=== PATIENT | female | born 1935 | race African-American/Black ===

== ENCOUNTER 2017-10-16 18:11 | Inpatient (IN) ==
[2017-10-16] MEDS ORDERED: ENOXAPARIN 60 MG/0.6 ML SYRINGE SUBCUT STA (19:42)
[2017-10-16] MEDS ORDERED: ONDANSETRON 4 MG/2 ML VIAL IV STA (19:43)
[2017-10-16] MEDS ORDERED: MORPHINE 4 MG/1 ML VIAL IV STA (19:43)
[2017-10-16 20:57] LABS: Basophils % 0.2 % (0.0-0.8); Eosinophils # 0.2 10*3/uL (0.0-0.87); Eosinophils % 1.9 % (0.00-10.9); Hematocrit 33.9 VOL% (35.7-47.0); Immature Granulocytes % 0.5 %; Immature Granulocytes Absolute 0.05 #; Lymphocytes # 1.9 10*3/uL (1.4-4.0); Lymphocytes % 17.8 % (21.3-54.2); Mean Corpuscular HGB Conc 32.4 GM/DL (32-36); Mean Corpuscular Hemoglobin 30 PG (27-34); Mean Corpuscular Volume 93.4 FL (87-102); Mean Platelet Volume 10.9 FL (9.6-12.0); Monocytes % 9.1 % (1.7-12.7); Neutrophils # 7.4 10*3/uL (1.4-7.4); Neutrophils % 70.5 % (38.7-73.9); Platelet Count 179 T/CUMM (130-400); Red Blood Count 3.63 MC/CUMM (3.8-5.5); Red Cell Distribution Width 16.3 % (9.3-17.3); White Blood Count 10.5 T/CUMM (4-12)
[2017-10-16] MEDS ORDERED: ACETAMINOPHEN 325 MG TABLET PO PRN (21:02)
[2017-10-16] MEDS ORDERED: ONDANSETRON 4 MG/2 ML VIAL IV PRN (21:02)
[2017-10-16 21:07] LABS: PT Patient Result 10.8 SECS; Partial Thromboplastin Time 27.5 SECS (0-40)
[2017-10-16 21:15] LABS: Calcium 8.2 MG/DL (8.5-10.1); Osmolality,Calculated 290.7 MOS/KG (273-304)
[2017-10-16] MEDS ORDERED: MORPHINE 4 MG/1 ML VIAL ONE (21:17)
[2017-10-16] MEDS ORDERED: ALBUTEROL 2.5 MG/3 ML NEB RESP TX PRN (22:18)
[2017-10-17] MEDS: MORPHINE 4 MG/1 ML VIAL IV PRN ×2 (05:13→18:40)
[2017-10-17 07:20] LABS: Basophils % 0.2 % (0.0-0.8); Eosinophils # 0.2 10*3/uL (0.0-0.87); Eosinophils % 1.8 % (0.00-10.9); Hematocrit 34.5 VOL% (35.7-47.0); Hemoglobin 10.6 GM/DL (12.0-16.0); Immature Granulocytes % 0.5 %; Immature Granulocytes Absolute 0.05 #; Lymphocytes # 2.3 10*3/uL (1.4-4.0); Lymphocytes % 24.9 % (21.3-54.2); Mean Corpuscular HGB Conc 30.7 GM/DL (32-36); Mean Corpuscular Hemoglobin 30 PG (27-34); Mean Corpuscular Volume 96.9 FL (87-102); Mean Platelet Volume 11.5 FL (9.6-12.0); Monocytes # 0.9 10*3/uL (0.11-0.8); Monocytes % 9.9 % (1.7-12.7); Neutrophils # 5.8 10*3/uL (1.4-7.4); Neutrophils % 62.7 % (38.7-73.9); Platelet Count 177 T/CUMM (130-400); Red Blood Count 3.56 MC/CUMM (3.8-5.5); Red Cell Distribution Width 16.3 % (9.3-17.3); White Blood Count 9.3 T/CUMM (4-12)
[2017-10-17 07:27] LABS: INR 1.1; PT Patient Result 11.4 SECS
[2017-10-17 07:51] LABS: Calcium 8.3 MG/DL (8.5-10.1); Osmolality,Calculated 288.7 MOS/KG (273-304); Potassium 4.4 MMOL/L (3.5-5.1)
[2017-10-17] MEDS: METOPROLOL TARTRATE 25 MG TABLET PO SCH ×2 (09:01→20:34)
[2017-10-17] MEDS: SERTRALINE 50 MG TABLET PO SCH (09:01)
[2017-10-17] MEDS: ENOXAPARIN 60 MG/0.6 ML SYRINGE SUBCUT SCH ×2 (09:01→20:34)
[2017-10-17] MEDS: DONEPEZIL 10 MG TABLET PO SCH (09:01)
[2017-10-17] MEDS: POTASSIUM CHLORIDE 10 MEQ TABLET PO SCH (09:01)
[2017-10-17] MEDS: MEGESTROL ES 125 MG/ML 30 ML/BOTTLE PO SCH (09:02)
[2017-10-17] MEDS: amLODIPine 5 MG TABLET PO SCH (09:03)
[2017-10-17] MEDS ORDERED: WARFARIN 4 MG TABLET PO SCH (18:00)
[2017-10-17] MEDS: WARFARIN 10 MG TABLET PO SCH (18:41)
[2017-10-17] MEDS: ATORVASTATIN 10 MG TABLET PO SCH (20:34)
[2017-10-17] MEDS: ZALEPLON 5 MG CAPSULE PO SCH (20:34)
[2017-10-17] MEDS: GABAPENTIN 100 MG CAPSULE PO SCH (20:34)
[2017-10-18 04:56] LABS: Basophils % 0.1 % (0.0-0.8); Eosinophils # 0.2 10*3/uL (0.0-0.87); Eosinophils % 1.8 % (0.00-10.9); Hematocrit 31.9 VOL% (35.7-47.0); Hemoglobin 10.3 GM/DL (12.0-16.0); Immature Granulocytes % 0.5 %; Immature Granulocytes Absolute 0.05 #; Lymphocytes # 2.2 10*3/uL (1.4-4.0); Lymphocytes % 20.7 % (21.3-54.2); Mean Corpuscular HGB Conc 32.3 GM/DL (32-36); Mean Corpuscular Hemoglobin 30 PG (27-34); Mean Corpuscular Volume 93.3 FL (87-102); Mean Platelet Volume 11.8 FL (9.6-12.0); Neutrophils # 7.3 10*3/uL (1.4-7.4); Neutrophils % 67.9 % (38.7-73.9); Platelet Count 182 T/CUMM (130-400); Red Blood Count 3.42 MC/CUMM (3.8-5.5); White Blood Count 10.7 T/CUMM (4-12)
[2017-10-18 05:19] LABS: Calcium 8.7 MG/DL (8.5-10.1); Osmolality,Calculated 290.7 MOS/KG (273-304); Potassium 4.9 MMOL/L (3.5-5.1)
[2017-10-18] MEDS: DONEPEZIL 10 MG TABLET PO SCH (10:36)
[2017-10-18] MEDS: METOPROLOL TARTRATE 25 MG TABLET PO SCH ×2 (10:36→20:42)
[2017-10-18] MEDS: POTASSIUM CHLORIDE 10 MEQ TABLET PO SCH (10:36)
[2017-10-18] MEDS: amLODIPine 5 MG TABLET PO SCH (10:36)
[2017-10-18] MEDS: SERTRALINE 50 MG TABLET PO SCH (10:36)
[2017-10-18] MEDS: MEGESTROL ES 125 MG/ML 30 ML/BOTTLE PO SCH (10:43)
[2017-10-18] MEDS ORDERED: VANCOMYCIN INJ 1,000 MG in SODIUM CHLORIDE 0.9% 250 ML IV SCH (11:00)
[2017-10-18] MEDS: ENOXAPARIN 60 MG/0.6 ML SYRINGE SUBCUT SCH (14:22)
[2017-10-18] MEDS: WARFARIN 10 MG TABLET PO SCH (18:43)
[2017-10-18] MEDS: ATORVASTATIN 10 MG TABLET PO SCH (20:42)
[2017-10-18] MEDS: ZALEPLON 5 MG CAPSULE PO SCH (20:42)
[2017-10-18] MEDS: GABAPENTIN 100 MG CAPSULE PO SCH (20:43)
[2017-10-19] MEDS: ENOXAPARIN 60 MG/0.6 ML SYRINGE SUBCUT SCH ×2 (02:51→15:27)
[2017-10-19 06:02] LABS: Basophils % 0.1 % (0.0-0.8); Eosinophils # 0.2 10*3/uL (0.0-0.87); Hematocrit 28.5 VOL% (35.7-47.0); Hemoglobin 9.3 GM/DL (12.0-16.0); Immature Granulocytes % 0.4 %; Immature Granulocytes Absolute 0.04 #; Lymphocytes # 1.9 10*3/uL (1.4-4.0); Lymphocytes % 17.9 % (21.3-54.2); Mean Corpuscular HGB Conc 32.6 GM/DL (32-36); Mean Corpuscular Hemoglobin 30 PG (27-34); Mean Corpuscular Volume 91.9 FL (87-102); Mean Platelet Volume 11.5 FL (9.6-12.0); Monocytes # 1.1 10*3/uL (0.11-0.8); Monocytes % 10.2 % (1.7-12.7); NRBC # 0.02 10*3/uL; Neutrophils # 7.5 10*3/uL (1.4-7.4); Neutrophils % 69.4 % (38.7-73.9); Platelet Count 232 T/CUMM (130-400); Red Cell Distribution Width 15.9 % (9.3-17.3); White Blood Count 10.7 T/CUMM (4-12)
[2017-10-19 06:22] LABS: Calcium 8.5 MG/DL (8.5-10.1); Osmolality,Calculated 299.3 MOS/KG (273-304); Potassium 4.7 MMOL/L (3.5-5.1)
[2017-10-19] MEDS: MORPHINE 4 MG/1 ML VIAL IV PRN (06:38)
[2017-10-19] MEDS ORDERED: WARFARIN 5 MG TABLET PO SCH (07:53)
[2017-10-19] MEDS: SERTRALINE 50 MG TABLET PO SCH (09:43)
[2017-10-19] MEDS: METOPROLOL TARTRATE 25 MG TABLET PO SCH ×2 (09:43→21:38)
[2017-10-19] MEDS: DONEPEZIL 10 MG TABLET PO SCH (09:43)
[2017-10-19] MEDS: amLODIPine 5 MG TABLET PO SCH (09:45)
[2017-10-19] MEDS: POTASSIUM CHLORIDE 10 MEQ TABLET PO SCH (09:45)
[2017-10-19] MEDS: MEGESTROL ES 125 MG/ML 30 ML/BOTTLE PO SCH (09:52)
[2017-10-19] MEDS: VANCOMYCIN INJ 750 MG in SODIUM CHLORIDE 0.9% 250 ML IV SCH (11:40)
[2017-10-19] MEDS: ATORVASTATIN 10 MG TABLET PO SCH (21:38)
[2017-10-19] MEDS: ZALEPLON 5 MG CAPSULE PO SCH (21:38)
[2017-10-19] MEDS: GABAPENTIN 100 MG CAPSULE PO SCH (21:39)
[2017-10-20] MEDS: ENOXAPARIN 60 MG/0.6 ML SYRINGE SUBCUT SCH ×2 (01:52→17:14)
[2017-10-20] MEDS: MORPHINE 4 MG/1 ML VIAL IV PRN (02:05)
[2017-10-20 06:32] LABS: INR 3.1
[2017-10-20 06:54] LABS: PT Patient Result 31.4 SECS
[2017-10-20] MEDS: SERTRALINE 50 MG TABLET PO SCH (10:18)
[2017-10-20] MEDS: amLODIPine 5 MG TABLET PO SCH (10:18)
[2017-10-20] MEDS: DONEPEZIL 10 MG TABLET PO SCH (10:18)
[2017-10-20] MEDS: cloNIDine 0.1 MG TABLET PO SCH ×2 (10:18→20:47)
[2017-10-20] MEDS: POTASSIUM CHLORIDE 10 MEQ TABLET PO SCH (10:18)
[2017-10-20] MEDS: METOPROLOL TARTRATE 25 MG TABLET PO SCH ×2 (10:18→20:47)
[2017-10-20] MEDS: VANCOMYCIN INJ 750 MG in SODIUM CHLORIDE 0.9% 250 ML IV SCH (10:19)
[2017-10-20] MEDS: MEGESTROL ES 125 MG/ML 30 ML/BOTTLE PO SCH (10:19)
[2017-10-20] MEDS: ZALEPLON 5 MG CAPSULE PO SCH (20:47)
[2017-10-20] MEDS: ATORVASTATIN 10 MG TABLET PO SCH (20:47)
[2017-10-20] MEDS: GABAPENTIN 100 MG CAPSULE PO SCH (20:47)
[2017-10-21] MEDS: ENOXAPARIN 60 MG/0.6 ML SYRINGE SUBCUT SCH (01:56)
[2017-10-21 04:13] LABS: Basophils % 0.2 % (0.0-0.8); Eosinophils # 0.3 10*3/uL (0.0-0.87); Eosinophils % 2.3 % (0.00-10.9); Hemoglobin 9.3 GM/DL (12.0-16.0); Immature Granulocytes Absolute 0.11 #; Lymphocytes # 2.6 10*3/uL (1.4-4.0); Lymphocytes % 24.2 % (21.3-54.2); Mean Corpuscular HGB Conc 32.1 GM/DL (32-36); Mean Corpuscular Hemoglobin 30 PG (27-34); Mean Corpuscular Volume 92.9 FL (87-102); Mean Platelet Volume 11.7 FL (9.6-12.0); Monocytes % 9.3 % (1.7-12.7); Neutrophils # 6.7 10*3/uL (1.4-7.4); Platelet Count 249 T/CUMM (130-400); Red Blood Count 3.12 MC/CUMM (3.8-5.5); Red Cell Distribution Width 16.2 % (9.3-17.3); White Blood Count 10.6 T/CUMM (4-12)
[2017-10-21 04:24] LABS: INR 2.1
[2017-10-21 04:29] LABS: Calcium 8.6 MG/DL (8.5-10.1); Osmolality,Calculated 292.8 MOS/KG (273-304); Potassium 5.2 MMOL/L (3.5-5.1)
[2017-10-21 04:33] LABS: PT Patient Result 21.5 SECS
[2017-10-21] MEDS: MEGESTROL ES 125 MG/ML 30 ML/BOTTLE PO SCH (08:20)
[2017-10-21] MEDS: amLODIPine 5 MG TABLET PO SCH (08:20)
[2017-10-21] MEDS: DONEPEZIL 10 MG TABLET PO SCH (08:20)
[2017-10-21] MEDS: SERTRALINE 50 MG TABLET PO SCH (08:20)
[2017-10-21] MEDS: cloNIDine 0.1 MG TABLET PO SCH ×2 (08:20→20:51)
[2017-10-21] MEDS: METOPROLOL TARTRATE 25 MG TABLET PO SCH ×2 (08:20→20:51)
[2017-10-21] MEDS: POTASSIUM CHLORIDE 10 MEQ TABLET PO SCH (08:20)
[2017-10-21] MEDS: VANCOMYCIN INJ 750 MG in SODIUM CHLORIDE 0.9% 250 ML IV SCH (12:05)
[2017-10-21] MEDS: MORPHINE 4 MG/1 ML VIAL IV PRN ×2 (14:50→19:10)
[2017-10-21] MEDS ORDERED: WARFARIN 5 MG TABLET PO SCH (18:00)
[2017-10-21] MEDS: ZALEPLON 5 MG CAPSULE PO SCH (20:51)
[2017-10-21] MEDS: ATORVASTATIN 10 MG TABLET PO SCH (20:51)
[2017-10-21] MEDS: GABAPENTIN 100 MG CAPSULE PO SCH (20:51)
[2017-10-22 05:50] LABS: Basophils % 0.2 % (0.0-0.8); Eosinophils # 0.2 10*3/uL (0.0-0.87); Hematocrit 28.5 VOL% (35.7-47.0); Hemoglobin 9.1 GM/DL (12.0-16.0); Immature Granulocytes % 1.2 %; Immature Granulocytes Absolute 0.11 #; Lymphocytes # 2.1 10*3/uL (1.4-4.0); Lymphocytes % 21.8 % (21.3-54.2); Mean Corpuscular HGB Conc 31.9 GM/DL (32-36); Mean Corpuscular Hemoglobin 30 PG (27-34); Mean Corpuscular Volume 92.8 FL (87-102); Mean Platelet Volume 11.9 FL (9.6-12.0); Monocytes # 0.9 10*3/uL (0.11-0.8); Monocytes % 9.4 % (1.7-12.7); Neutrophils # 6.2 10*3/uL (1.4-7.4); Neutrophils % 65.4 % (38.7-73.9); Platelet Count 278 T/CUMM (130-400); Red Blood Count 3.07 MC/CUMM (3.8-5.5); Red Cell Distribution Width 16.2 % (9.3-17.3); White Blood Count 9.4 T/CUMM (4-12)
[2017-10-22 05:58] LABS: INR 1.6; PT Patient Result 16.4 SECS
[2017-10-22 06:20] LABS: Calcium 8.7 MG/DL (8.5-10.1); Osmolality,Calculated 294.8 MOS/KG (273-304); Potassium 5.1 MMOL/L (3.5-5.1)
[2017-10-22] MEDS: MORPHINE 4 MG/1 ML VIAL IV PRN ×2 (09:21→20:43)
[2017-10-22] MEDS: amLODIPine 5 MG TABLET PO SCH (09:22)
[2017-10-22] MEDS: METOPROLOL TARTRATE 25 MG TABLET PO SCH ×2 (09:22→20:43)
[2017-10-22] MEDS: cloNIDine 0.1 MG TABLET PO SCH ×4 (09:22→20:43)
[2017-10-22] MEDS: DONEPEZIL 10 MG TABLET PO SCH (09:22)
[2017-10-22] MEDS: POTASSIUM CHLORIDE 10 MEQ TABLET PO SCH (09:23)
[2017-10-22] MEDS: SERTRALINE 50 MG TABLET PO SCH (09:27)
[2017-10-22] MEDS: MEGESTROL ES 125 MG/ML 30 ML/BOTTLE PO SCH (09:39)
[2017-10-22] MEDS: VANCOMYCIN INJ 750 MG in SODIUM CHLORIDE 0.9% 250 ML IV SCH (12:37)
[2017-10-22] MEDS ORDERED: WARFARIN 7.5 MG TABLET PO SCH (18:00)
[2017-10-22] MEDS: GABAPENTIN 100 MG CAPSULE PO SCH (20:43)
[2017-10-22] MEDS: ZALEPLON 5 MG CAPSULE PO SCH (20:43)
[2017-10-22] MEDS: ATORVASTATIN 10 MG TABLET PO SCH (20:43)
[2017-10-23 04:14] LABS: Basophils % 0.2 % (0.0-0.8); Eosinophils # 0.2 10*3/uL (0.0-0.87); Eosinophils % 1.7 % (0.00-10.9); Hematocrit 28.2 VOL% (35.7-47.0); Hemoglobin 8.8 GM/DL (12.0-16.0); Immature Granulocytes % 2.4 %; Immature Granulocytes Absolute 0.27 #; Lymphocytes # 1.9 10*3/uL (1.4-4.0); Lymphocytes % 16.7 % (21.3-54.2); Mean Corpuscular HGB Conc 31.2 GM/DL (32-36); Mean Corpuscular Hemoglobin 30 PG (27-34); Mean Corpuscular Volume 94.6 FL (87-102); Mean Platelet Volume 11.5 FL (9.6-12.0); Monocytes # 1.2 10*3/uL (0.11-0.8); Monocytes % 10.4 % (1.7-12.7); Neutrophils # 7.9 10*3/uL (1.4-7.4); Neutrophils % 68.6 % (38.7-73.9); Platelet Count 257 T/CUMM (130-400); Red Blood Count 2.98 MC/CUMM (3.8-5.5); Red Cell Distribution Width 16.1 % (9.3-17.3); White Blood Count 11.5 T/CUMM (4-12)
[2017-10-23 04:22] LABS: INR 1.8; PT Patient Result 18.5 SECS
[2017-10-23 04:25] LABS: Calcium 8.4 MG/DL (8.5-10.1); Osmolality,Calculated 298.8 MOS/KG (273-304); Potassium 5.2 MMOL/L (3.5-5.1)
[2017-10-23] MEDS: cloNIDine 0.1 MG TABLET PO SCH ×2 (08:12→15:08)
[2017-10-23] MEDS: amLODIPine 5 MG TABLET PO SCH (08:12)
[2017-10-23] MEDS: SERTRALINE 50 MG TABLET PO SCH (08:12)
[2017-10-23] MEDS: MEGESTROL ES 125 MG/ML 30 ML/BOTTLE PO SCH (08:12)
[2017-10-23] MEDS: DONEPEZIL 10 MG TABLET PO SCH (08:12)
[2017-10-23] MEDS: POTASSIUM CHLORIDE 10 MEQ TABLET PO SCH (08:12)
[2017-10-23] MEDS: METOPROLOL TARTRATE 25 MG TABLET PO SCH (08:12)
[2017-10-23] MEDS: VANCOMYCIN INJ 750 MG in SODIUM CHLORIDE 0.9% 250 ML IV SCH (11:04)
[2017-10-23 12:20] VITALS: BP 101/66
== END 2017-10-23 15:07 | disposition home health service (06) | DRG 301 ==
LOC: N.ED 18:11 → N.EDINP 21:02 → SUATTDRO 21:02 → SUPCPDRO 21:02 → N.EDINP 21:59 → N.4E 23:29
PROVIDERS: ATTEND Internal Medicine

== ENCOUNTER 2017-12-25 00:14 | Inpatient (IN) ==
[2017-12-25] MEDS ORDERED: SODIUM CHLORIDE 0.9% 1,000 ML IV STA (00:46)
[2017-12-25 01:34] LABS: Basophils % 0.2 % (0.0-0.8); Eosinophils # 0.1 10*3/uL (0.0-0.87); Eosinophils % 1.2 % (0.00-10.9); Hematocrit 36.7 VOL% (35.7-47.0); Hemoglobin 12.1 GM/DL (12.0-16.0); Immature Granulocytes % 0.7 %; Immature Granulocytes Absolute 0.09 #; Lymphocytes # 2.6 10*3/uL (1.4-4.0); Lymphocytes % 21.4 % (21.3-54.2); Mean Corpuscular Hemoglobin 31 PG (27-34); Mean Corpuscular Volume 93.6 FL (87-102); Mean Platelet Volume 11.8 FL (9.6-12.0); Monocytes # 0.9 10*3/uL (0.11-0.8); Monocytes % 7.5 % (1.7-12.7); Neutrophils # 8.3 10*3/uL (1.4-7.4); Red Blood Count 3.92 MC/CUMM (3.8-5.5); Red Cell Distribution Width 15.1 % (9.3-17.3)
[2017-12-25 01:49] LABS: Platelet Count 87 T/CUMM (130-400)
[2017-12-25 01:57] LABS: Albumin 3.4 G/DL (3.4-5.0); Bilirubin,Total 0.4 MG/DL (0.2-1.0); Calcium 8.9 MG/DL (8.5-10.1); Osmolality,Calculated 290.8 MOS/KG (273-304); Potassium 5.1 MMOL/L (3.5-5.1); Total Protein 7.3 G/DL (6.4-8.3)
[2017-12-25 02:17] LABS: Hypochromasia 1+; Platelet Estimate Decreased
[2017-12-25 02:18] LABS: Elliptocytes 1+; Microcytosis 1+
[2017-12-25 02:19] LABS: Anisocytosis 1+
[2017-12-25 02:37] LABS: PT Patient Result 10.9 SECS; Partial Thromboplastin Time 26.1 SECS (0-40)
[2017-12-25 04:27] LABS: Apearance,Urine Cloudy (Clear); Bacteria,Urine Many /HPF (Few); RBC,Urine 1649 /HPF (0-4); Squamous Epithelial Cell,Urine Many /HPF (0-10); Urine Color Yellow (Yellow); Urine Specific Gravity 1.025 (1.001-1.035); WBC,Urine 1180 /HPF (0-6)
[2017-12-25 04:28] LABS: Bilirubin,Urine Negative (Negative); Blood, Urine Large mg/dL (Negative); Glucose,Urine (UA) Negative (Negative); Ketones,Urine Negative (Negative); Nitrite,Urine Positive (Negative); Protein,Urine 30 MG/DL; Urine Urobilinogen 0.2 EU/DL (0.2-1.0)
[2017-12-25] MEDS ORDERED: cefTRIAXone 250 MG VIAL IV STA (04:33)
[2017-12-25] MEDS ORDERED: ONDANSETRON 4 MG/2 ML VIAL IV PRN (05:12)
[2017-12-25] MEDS ORDERED: ACETAMINOPHEN 325 MG TABLET PO PRN (05:12)
[2017-12-25] MEDS ORDERED: ACETAMINOPHEN 500 MG TABLET PO STA (05:40)
[2017-12-25] MEDS: SODIUM CHLORIDE 0.9% 1,000 ML IV SCH ×2 (06:45→17:01)
[2017-12-25] MEDS: PANTOPRAZOLE 40 MG VIAL IV SCH ×2 (09:31→21:26)
[2017-12-25 10:29] LABS: Basophils % 0.2 % (0.0-0.8); Eosinophils # 0.2 10*3/uL (0.0-0.87); Eosinophils % 1.1 % (0.00-10.9); Hematocrit 30.6 VOL% (35.7-47.0); Immature Granulocytes % 0.6 %; Immature Granulocytes Absolute 0.08 #; Lymphocytes # 2.4 10*3/uL (1.4-4.0); Lymphocytes % 18.6 % (21.3-54.2); Mean Corpuscular HGB Conc 32.4 GM/DL (32-36); Mean Corpuscular Hemoglobin 31 PG (27-34); Mean Corpuscular Volume 95.3 FL (87-102); Mean Platelet Volume 10.8 FL (9.6-12.0); Monocytes % 7.6 % (1.7-12.7); Neutrophils # 9.4 10*3/uL (1.4-7.4); Neutrophils % 71.9 % (38.7-73.9); Platelet Count 178 T/CUMM (130-400); Red Blood Count 3.21 MC/CUMM (3.8-5.5); White Blood Count 13.1 T/CUMM (4-12)
[2017-12-25 10:48] LABS: Hemoglobin 9.9 GM/DL (12.0-16.0)
[2017-12-25] MEDS: MORPHINE 4 MG/1 ML VIAL IV PRN (14:29)
[2017-12-26] MEDS: SODIUM CHLORIDE 0.9% 1,000 ML IV SCH ×3 (03:26→23:25)
[2017-12-26] MEDS: MORPHINE 4 MG/1 ML VIAL IV PRN ×3 (03:47→18:34)
[2017-12-26 05:02] LABS: Basophils % 0.2 % (0.0-0.8); Eosinophils # 0.3 10*3/uL (0.0-0.87); Eosinophils % 2.6 % (0.00-10.9); Hematocrit 26.7 VOL% (35.7-47.0); Hemoglobin 8.8 GM/DL (12.0-16.0); Immature Granulocytes % 0.4 %; Immature Granulocytes Absolute 0.05 #; Lymphocytes # 2.5 10*3/uL (1.4-4.0); Lymphocytes % 21.6 % (21.3-54.2); Mean Corpuscular Hemoglobin 31 PG (27-34); Mean Corpuscular Volume 94.7 FL (87-102); Mean Platelet Volume 11.4 FL (9.6-12.0); Monocytes # 0.9 10*3/uL (0.11-0.8); Monocytes % 8.3 % (1.7-12.7); Neutrophils # 7.6 10*3/uL (1.4-7.4); Neutrophils % 66.9 % (38.7-73.9); Platelet Count 184 T/CUMM (130-400); Red Blood Count 2.82 MC/CUMM (3.8-5.5); White Blood Count 11.3 T/CUMM (4-12)
[2017-12-26] MEDS: cefTRIAXone 1,000 MG in SYRINGE 1 EACH IV SCH (05:21)
[2017-12-26 05:38] LABS: Albumin 2.5 G/DL (3.4-5.0); Bilirubin,Total 0.6 MG/DL (0.2-1.0); Calcium 8.1 MG/DL (8.5-10.1); Osmolality,Calculated 290.6 MOS/KG (273-304); Potassium 3.8 MMOL/L (3.5-5.1)
[2017-12-26] MEDS: PANTOPRAZOLE 40 MG VIAL IV SCH (08:35)
[2017-12-26] MEDS ORDERED: DIAZEPAM 5 MG TABLET ONE (11:41)
[2017-12-26] MEDS ORDERED: ASPIRIN 325 MG TABLET ONE (11:41)
[2017-12-26] MEDS ORDERED: diphenhydrAMINE CAP 25 MG CAPSULE ONE (11:41)
[2017-12-27] MEDS: MORPHINE 4 MG/1 ML VIAL IV PRN ×2 (00:33→07:57)
[2017-12-27 05:09] LABS: Basophils % 0.2 % (0.0-0.8); Eosinophils # 0.3 10*3/uL (0.0-0.87); Eosinophils % 2.6 % (0.00-10.9); Hematocrit 27.9 VOL% (35.7-47.0); Hemoglobin 8.9 GM/DL (12.0-16.0); Immature Granulocytes % 0.5 %; Immature Granulocytes Absolute 0.05 #; Lymphocytes # 2.2 10*3/uL (1.4-4.0); Lymphocytes % 21.1 % (21.3-54.2); Mean Corpuscular HGB Conc 31.9 GM/DL (32-36); Mean Corpuscular Hemoglobin 31 PG (27-34); Mean Corpuscular Volume 96.9 FL (87-102); Mean Platelet Volume 11.5 FL (9.6-12.0); Monocytes # 0.9 10*3/uL (0.11-0.8); Monocytes % 8.5 % (1.7-12.7); Neutrophils # 6.9 10*3/uL (1.4-7.4); Neutrophils % 67.1 % (38.7-73.9); Platelet Count 139 T/CUMM (130-400); Red Blood Count 2.88 MC/CUMM (3.8-5.5); Red Cell Distribution Width 14.6 % (9.3-17.3); White Blood Count 10.2 T/CUMM (4-12)
[2017-12-27] MEDS: cefTRIAXone 1,000 MG in SYRINGE 1 EACH IV SCH (05:35)
[2017-12-27 05:40] LABS: Calcium 7.9 MG/DL (8.5-10.1); Osmolality,Calculated 285.8 MOS/KG (273-304); Potassium 4.1 MMOL/L (3.5-5.1)
[2017-12-27] MEDS ORDERED: PANTOPRAZOLE 40 MG TABLET PO SCH (09:00)
[2017-12-27] MEDS: SODIUM CHLORIDE 0.9% 1,000 ML IV SCH (10:17)
[2017-12-27 11:49] VITALS: BP 143/82
== END 2017-12-27 14:03 | disposition home health service (06) | DRG 377 ==
LOC: N.ED 00:14 → N.EDINP 05:53 → N.3E 06:22
PROVIDERS: ADMIT Internal Medicine; ATTEND Internal Medicine

== ENCOUNTER 2018-03-07 10:48 | Inpatient (IN) ==
[2018-03-07] MEDS ORDERED: SODIUM CHLORIDE 0.9% 500 ML IV STA (11:25)
[2018-03-07 12:13] LABS: Basophils % 0.3 % (0.0-0.8); Eosinophils # 0.3 10*3/uL (0.0-0.87); Eosinophils % 1.6 % (0.00-10.9); Hematocrit 29.6 VOL% (35.7-47.0); Hemoglobin 9.4 GM/DL (12.0-16.0); Immature Granulocytes % 0.6 %; Immature Granulocytes Absolute 0.09 #; Lymphocytes % 19.3 % (21.3-54.2); Mean Corpuscular HGB Conc 31.8 GM/DL (32-36); Mean Corpuscular Hemoglobin 31 PG (27-34); Mean Corpuscular Volume 96.1 FL (87-102); Mean Platelet Volume 10.8 FL (9.6-12.0); Monocytes # 1.5 10*3/uL (0.11-0.8); Monocytes % 9.4 % (1.7-12.7); Neutrophils # 10.7 10*3/uL (1.4-7.4); Neutrophils % 68.8 % (38.7-73.9); Platelet Count 254 T/CUMM (130-400); Red Blood Count 3.08 MC/CUMM (3.8-5.5); Red Cell Distribution Width 14.1 % (9.3-17.3); White Blood Count 15.6 T/CUMM (4-12)
[2018-03-07 12:21] LABS: Apearance,Urine CLOUDY (Clear); Bacteria,Urine Many /HPF (Few); Bilirubin,Urine Negative (Negative); Blood, Urine Small mg/dL (Negative); Glucose,Urine (UA) Negative (Negative); Ketones,Urine Negative (Negative); Nitrite,Urine Negative (Negative); Protein,Urine 30 MG/DL; RBC,Urine 693 /HPF (0-4); Squamous Epithelial Cell,Urine Few /HPF (0-10); Urine Color Yellow (Yellow); Urine Specific Gravity 1.021 (1.001-1.035); Urine Urobilinogen < 2.0 EU/DL (0.2-1.0); WBC,Urine 2601 /HPF (0-6)
[2018-03-07 12:27] LABS: Alanine Aminotransferase 16 U/L (13-56); Albumin 3.1 G/DL (3.4-5.0); Alkaline Phosphatase 66 U/L (45-117); Aspartate Amino Transferase 24 U/L (0-37); Bilirubin,Total < 0.39 MG/DL (0.2-1.0); Blood Urea Nitrogen 20 MG/DL (7-18); Calcium 8.8 MG/DL (8.5-10.1); Glucose 96 MG/DL (74-106); Potassium 3.8 MMOL/L (3.5-5.1); Sodium 143 MMOL/L (136-145); Total Protein 7.5 G/DL (6.4-8.3)
[2018-03-07] MEDS ORDERED: cefTRIAXone 1,000 MG in SODIUM CHLORIDE 0.9% 100 ML IV STA (12:33)
[2018-03-07 16:01] LABS: % Iron Saturation 26.5 % (18-50); Ferritin 239.5 ng/ml (8-252)
[2018-03-07] MEDS ORDERED: ACETAMINOPHEN 325 MG TABLET PO PRN (17:19)
[2018-03-07] MEDS ORDERED: traMADol 50 MG TABLET PO PRN (17:19)
[2018-03-07] MEDS ORDERED: ATROPINE 1 % OPH SOLN 5 ML BOTTLE SL PRN (17:27)
[2018-03-07] MEDS ORDERED: ALBUTEROL 2.5 MG/3 ML NEB RESP TX PRN (17:27)
[2018-03-07] MEDS ORDERED: LORazepam 2 MG/1 ML VIAL IV ONE ×2 (17:44)
[2018-03-07] MEDS ORDERED: LORazepam 2 MG/1 ML VIAL ONE (17:57)
[2018-03-07] MEDS ORDERED: ONDANSETRON 4 MG/2 ML VIAL IV PRN (18:03)
[2018-03-07] MEDS: MORPHINE 4 MG/1 ML VIAL IV PRN (18:30)
[2018-03-07] MEDS: SODIUM CHLORIDE 0.9% 1,000 ML IV SCH (18:31)
[2018-03-07] MEDS: PANTOPRAZOLE 40 MG VIAL IV SCH (20:55)
[2018-03-07] MEDS: METOPROLOL TARTRATE 25 MG TABLET PO SCH (20:57)
[2018-03-07] MEDS: DOCUSATE SODIUM 100 MG CAPSULE PO SCH (20:57)
[2018-03-07] MEDS: HYDROCORTISONE 2.5% RECTAL CREAM 30 GM TUBE TOP SCH (20:57)
[2018-03-08 06:39] LABS: Alanine Aminotransferase 13 U/L (13-56); Albumin 2.5 G/DL (3.4-5.0); Alkaline Phosphatase 54 U/L (45-117); Aspartate Amino Transferase 21 U/L (0-37); Bilirubin,Total < 0.39 MG/DL (0.2-1.0); Blood Urea Nitrogen 17 MG/DL (7-18); Calcium 8.1 MG/DL (8.5-10.1); Glucose 76 MG/DL (74-106); Potassium 3.5 MMOL/L (3.5-5.1); Sodium 143 MMOL/L (136-145); Total Protein 6.2 G/DL (6.4-8.3)
[2018-03-08 08:06] LABS: Basophils % 0.1 % (0.0-0.8); Eosinophils # 0.3 10*3/uL (0.0-0.87); Eosinophils % 2.9 % (0.00-10.9); Hematocrit 24.4 VOL% (35.7-47.0); Immature Granulocytes % 0.5 %; Immature Granulocytes Absolute 0.05 #; Lymphocytes # 2.3 10*3/uL (1.4-4.0); Lymphocytes % 21.6 % (21.3-54.2); Mean Corpuscular HGB Conc 32.8 GM/DL (32-36); Mean Corpuscular Hemoglobin 31 PG (27-34); Mean Corpuscular Volume 93.8 FL (87-102); Mean Platelet Volume 11.2 FL (9.6-12.0); Monocytes # 1.1 10*3/uL (0.11-0.8); Monocytes % 10.1 % (1.7-12.7); Neutrophils # 6.8 10*3/uL (1.4-7.4); Neutrophils % 64.8 % (38.7-73.9); Red Cell Distribution Width 14.3 % (9.3-17.3)
[2018-03-08 08:15] LABS: Platelet Count 200 T/CUMM (130-400); White Blood Count 10.5 T/CUMM (4-12)
[2018-03-08 08:52] LABS: Hematocrit 24.9 VOL% (35.7-47.0)
[2018-03-08] MEDS ORDERED: PANTOPRAZOLE 40 MG TABLET PO SCH (09:00)
[2018-03-08] MEDS: METOPROLOL TARTRATE 25 MG TABLET PO SCH ×2 (09:45→22:37)
[2018-03-08] MEDS: POTASSIUM CHLORIDE 10 MEQ TABLET PO SCH (09:45)
[2018-03-08] MEDS ORDERED: SODIUM CHLORIDE 0.9% 1,000 ML IV PRN (09:45)
[2018-03-08] MEDS: HYDROCORTISONE 2.5% RECTAL CREAM 30 GM TUBE TOP SCH ×2 (09:45→23:04)
[2018-03-08] MEDS: SERTRALINE 50 MG TABLET PO SCH (09:45)
[2018-03-08] MEDS: ATORVASTATIN 10 MG TABLET PO SCH (09:45)
[2018-03-08] MEDS: DOCUSATE SODIUM 100 MG CAPSULE PO SCH ×2 (09:45→22:37)
[2018-03-08] MEDS: GABAPENTIN 100 MG CAPSULE PO SCH (09:45)
[2018-03-08] MEDS: DONEPEZIL 10 MG TABLET PO SCH (09:45)
[2018-03-08] MEDS: MEGESTROL ES 125 MG/ML 30 ML/BOTTLE PO SCH (09:46)
[2018-03-08] MEDS: PANTOPRAZOLE 40 MG VIAL IV SCH ×2 (09:46→22:37)
[2018-03-08] MEDS: amLODIPine 5 MG TABLET PO SCH (09:46)
[2018-03-08] MEDS: cefTRIAXone 1,000 MG in SYRINGE 1 EACH IV SCH (14:46)
[2018-03-08 20:45] LABS: Hematocrit 33.7 VOL% (35.7-47.0); Hemoglobin 10.8 GM/DL (12.0-16.0)
[2018-03-09 00:06] LABS: Hematocrit 33.6 VOL% (35.7-47.0); Hematocrit 33.7 VOL% (35.7-47.0); Hemoglobin 10.9 GM/DL (12.0-16.0)
[2018-03-09] MEDS: SODIUM CHLORIDE 0.9% 1,000 ML IV SCH ×2 (04:06→13:21)
[2018-03-09 04:49] LABS: Hematocrit 36.7 VOL% (35.7-47.0); Hemoglobin 11.8 GM/DL (12.0-16.0)
[2018-03-09 04:50] LABS: Basophils % 0.2 % (0.0-0.8); Eosinophils # 0.4 10*3/uL (0.0-0.87); Eosinophils % 3.8 % (0.00-10.9); Hematocrit 35.5 VOL% (35.7-47.0); Hemoglobin 11.3 GM/DL (12.0-16.0); Immature Granulocytes % 0.5 %; Immature Granulocytes Absolute 0.05 #; Lymphocytes # 2.2 10*3/uL (1.4-4.0); Mean Corpuscular HGB Conc 31.8 GM/DL (32-36); Mean Corpuscular Hemoglobin 29 PG (27-34); Mean Platelet Volume 11.4 FL (9.6-12.0); Monocytes # 0.9 10*3/uL (0.11-0.8); Monocytes % 9.2 % (1.7-12.7); Neutrophils # 6.4 10*3/uL (1.4-7.4); Neutrophils % 64.3 % (38.7-73.9); Platelet Count 194 T/CUMM (130-400); Red Cell Distribution Width 15.8 % (9.3-17.3)
[2018-03-09 05:14] LABS: Albumin 2.7 G/DL (3.4-5.0); Bilirubin,Total 0.7 MG/DL (0.2-1.0); Calcium 8.5 MG/DL (8.5-10.1); Potassium 3.8 MMOL/L (3.5-5.1); Total Protein 6.7 G/DL (6.4-8.3)
[2018-03-09] MEDS: ATORVASTATIN 10 MG TABLET PO SCH (09:42)
[2018-03-09] MEDS: DONEPEZIL 10 MG TABLET PO SCH (09:42)
[2018-03-09] MEDS: POTASSIUM CHLORIDE 10 MEQ TABLET PO SCH (09:42)
[2018-03-09] MEDS: amLODIPine 5 MG TABLET PO SCH (09:42)
[2018-03-09] MEDS: DOCUSATE SODIUM 100 MG CAPSULE PO SCH ×2 (09:42→22:24)
[2018-03-09] MEDS: PANTOPRAZOLE 40 MG VIAL IV SCH ×2 (09:43→22:23)
[2018-03-09] MEDS: SERTRALINE 50 MG TABLET PO SCH (09:43)
[2018-03-09] MEDS: METOPROLOL TARTRATE 25 MG TABLET PO SCH ×2 (09:43→22:25)
[2018-03-09] MEDS: HYDROCORTISONE 2.5% RECTAL CREAM 30 GM TUBE TOP SCH ×2 (09:43→22:25)
[2018-03-09] MEDS: MEGESTROL ES 125 MG/ML 30 ML/BOTTLE PO SCH (09:48)
[2018-03-09] MEDS: MORPHINE 4 MG/1 ML VIAL IV PRN ×3 (09:48→22:24)
[2018-03-09] MEDS: GABAPENTIN 100 MG CAPSULE PO SCH (11:38)
[2018-03-09] MEDS: cefTRIAXone 1,000 MG in SYRINGE 1 EACH IV SCH (13:21)
[2018-03-09] MEDS ORDERED: LORazepam 2 MG/1 ML VIAL IM ONE (14:59)
[2018-03-09 15:58] LABS: Hematocrit 33.6 VOL% (35.7-47.0); Hemoglobin 10.7 GM/DL (12.0-16.0)
[2018-03-09] MEDS: LORazepam 2 MG/1 ML VIAL IV PRN (20:49)
[2018-03-09 20:59] LABS: Hemoglobin 10.5 GM/DL (12.0-16.0)
[2018-03-10 05:24] LABS: Basophils % 0.2 % (0.0-0.8); Eosinophils # 0.3 10*3/uL (0.0-0.87); Eosinophils % 3.1 % (0.00-10.9); Hematocrit 31.6 VOL% (35.7-47.0); Hemoglobin 10.2 GM/DL (12.0-16.0); Immature Granulocytes % 0.5 %; Immature Granulocytes Absolute 0.05 #; Lymphocytes # 2.1 10*3/uL (1.4-4.0); Lymphocytes % 22.7 % (21.3-54.2); Mean Corpuscular HGB Conc 32.3 GM/DL (32-36); Mean Corpuscular Hemoglobin 29 PG (27-34); Mean Corpuscular Volume 89.8 FL (87-102); Mean Platelet Volume 11.1 FL (9.6-12.0); Monocytes % 10.6 % (1.7-12.7); Neutrophils # 5.8 10*3/uL (1.4-7.4); Neutrophils % 62.9 % (38.7-73.9); Platelet Count 185 T/CUMM (130-400); Red Blood Count 3.52 MC/CUMM (3.8-5.5); Red Cell Distribution Width 15.7 % (9.3-17.3); White Blood Count 9.3 T/CUMM (4-12)
[2018-03-10] MEDS: MORPHINE 4 MG/1 ML VIAL IV PRN ×3 (05:34→21:41)
[2018-03-10 05:45] LABS: Albumin 2.5 G/DL (3.4-5.0); Bilirubin,Total 1.1 MG/DL (0.2-1.0); Calcium 8.2 MG/DL (8.5-10.1); Potassium 3.5 MMOL/L (3.5-5.1); Total Protein 6.4 G/DL (6.4-8.3)
[2018-03-10] MEDS ORDERED: fentaNYL 25 MCG/HR PATCH TRANSDERM SCH (09:00)
[2018-03-10] MEDS: METOPROLOL TARTRATE 25 MG TABLET PO SCH ×2 (09:58→21:42)
[2018-03-10] MEDS: GABAPENTIN 100 MG CAPSULE PO SCH (09:58)
[2018-03-10] MEDS: MEGESTROL ES 125 MG/ML 30 ML/BOTTLE PO SCH (09:58)
[2018-03-10] MEDS: DOCUSATE SODIUM 100 MG CAPSULE PO SCH ×2 (09:58→21:42)
[2018-03-10] MEDS: SERTRALINE 50 MG TABLET PO SCH (09:58)
[2018-03-10] MEDS: DONEPEZIL 10 MG TABLET PO SCH (09:58)
[2018-03-10] MEDS: ATORVASTATIN 10 MG TABLET PO SCH (09:58)
[2018-03-10] MEDS: amLODIPine 5 MG TABLET PO SCH (09:58)
[2018-03-10] MEDS: POTASSIUM CHLORIDE 10 MEQ TABLET PO SCH (09:59)
[2018-03-10] MEDS: PANTOPRAZOLE 40 MG VIAL IV SCH ×2 (09:59→21:41)
[2018-03-10] MEDS: HYDROCORTISONE 2.5% RECTAL CREAM 30 GM TUBE TOP SCH ×2 (09:59→21:41)
[2018-03-10] MEDS: cefTRIAXone 1,000 MG in SYRINGE 1 EACH IV SCH (12:05)
[2018-03-11] MEDS: LORazepam 2 MG/1 ML VIAL IV PRN ×2 (04:43→23:37)
[2018-03-11 07:04] LABS: Basophils % 0.2 % (0.0-0.8); Eosinophils # 0.3 10*3/uL (0.0-0.87); Eosinophils % 2.7 % (0.00-10.9); Hematocrit 32.6 VOL% (35.7-47.0); Hemoglobin 10.5 GM/DL (12.0-16.0); Immature Granulocytes % 0.4 %; Immature Granulocytes Absolute 0.04 #; Lymphocytes # 1.7 10*3/uL (1.4-4.0); Lymphocytes % 17.7 % (21.3-54.2); Mean Corpuscular HGB Conc 32.2 GM/DL (32-36); Mean Corpuscular Hemoglobin 29 PG (27-34); Mean Corpuscular Volume 91.3 FL (87-102); Monocytes # 1.1 10*3/uL (0.11-0.8); Monocytes % 11.3 % (1.7-12.7); Neutrophils # 6.5 10*3/uL (1.4-7.4); Neutrophils % 67.7 % (38.7-73.9); Platelet Count 162 T/CUMM (130-400); Red Blood Count 3.57 MC/CUMM (3.8-5.5); Red Cell Distribution Width 15.4 % (9.3-17.3); White Blood Count 9.6 T/CUMM (4-12)
[2018-03-11 07:26] LABS: Calcium 8.1 MG/DL (8.5-10.1); Osmolality,Calculated 281.3 MOS/KG (273-304); Potassium 3.8 MMOL/L (3.5-5.1)
[2018-03-11] MEDS ORDERED: MAGNESIUM SULF RIDER 2 GM in PREMIX 1 EACH IV PRN (08:41)
[2018-03-11] MEDS ORDERED: MAGNESIUM SULF RIDER 4 GM in PREMIX 1 EACH IV PRN (08:41)
[2018-03-11] MEDS: DONEPEZIL 10 MG TABLET PO SCH (09:18)
[2018-03-11] MEDS: GABAPENTIN 100 MG CAPSULE PO SCH (09:18)
[2018-03-11] MEDS: HYDROCORTISONE 2.5% RECTAL CREAM 30 GM TUBE TOP SCH (09:18)
[2018-03-11] MEDS: DOCUSATE SODIUM 100 MG CAPSULE PO SCH ×2 (09:18→23:36)
[2018-03-11] MEDS: METOPROLOL TARTRATE 25 MG TABLET PO SCH ×2 (09:18→23:37)
[2018-03-11] MEDS: POTASSIUM CHLORIDE 10 MEQ TABLET PO SCH (09:18)
[2018-03-11] MEDS: ATORVASTATIN 10 MG TABLET PO SCH (09:18)
[2018-03-11] MEDS: amLODIPine 5 MG TABLET PO SCH (09:18)
[2018-03-11] MEDS: SERTRALINE 50 MG TABLET PO SCH (09:18)
[2018-03-11] MEDS: PANTOPRAZOLE 40 MG VIAL IV SCH ×2 (09:19→23:36)
[2018-03-11] MEDS: MEGESTROL ES 125 MG/ML 30 ML/BOTTLE PO SCH (09:20)
[2018-03-11] MEDS: cefTRIAXone 1,000 MG in SYRINGE 1 EACH IV SCH (12:02)
[2018-03-11] MEDS: SODIUM CHLORIDE 0.9% 1,000 ML IV SCH ×3 (12:09→12:10)
[2018-03-11] MEDS: MORPHINE 4 MG/1 ML VIAL IV PRN (14:06)
[2018-03-12 05:23] LABS: Basophils % 0.2 % (0.0-0.8); Eosinophils # 0.3 10*3/uL (0.0-0.87); Eosinophils % 2.7 % (0.00-10.9); Immature Granulocytes % 0.4 %; Immature Granulocytes Absolute 0.04 #; Lymphocytes # 1.7 10*3/uL (1.4-4.0); Lymphocytes % 17.8 % (21.3-54.2); Mean Corpuscular HGB Conc 32.4 GM/DL (32-36); Mean Corpuscular Hemoglobin 30 PG (27-34); Mean Corpuscular Volume 91.2 FL (87-102); Mean Platelet Volume 11.5 FL (9.6-12.0); Monocytes % 11.1 % (1.7-12.7); Neutrophils # 6.3 10*3/uL (1.4-7.4); Neutrophils % 67.8 % (38.7-73.9); Platelet Count 165 T/CUMM (130-400); Red Blood Count 3.73 MC/CUMM (3.8-5.5); Red Cell Distribution Width 15.7 % (9.3-17.3); White Blood Count 9.3 T/CUMM (4-12)
[2018-03-12 06:10] LABS: Calcium 7.9 MG/DL (8.5-10.1); Osmolality,Calculated 284.8 MOS/KG (273-304); Potassium 3.7 MMOL/L (3.5-5.1)
[2018-03-12 08:16] VITALS: BP 129/72
[2018-03-12] MEDS: HYDROCORTISONE 2.5% RECTAL CREAM 30 GM TUBE TOP SCH ×2 (09:53)
[2018-03-12] MEDS: DOCUSATE SODIUM 100 MG CAPSULE PO SCH (09:53)
[2018-03-12] MEDS: POTASSIUM CHLORIDE 10 MEQ TABLET PO SCH (09:53)
[2018-03-12] MEDS: amLODIPine 5 MG TABLET PO SCH (09:53)
[2018-03-12] MEDS: DONEPEZIL 10 MG TABLET PO SCH (09:53)
[2018-03-12] MEDS: GABAPENTIN 100 MG CAPSULE PO SCH (09:53)
[2018-03-12] MEDS: PANTOPRAZOLE 40 MG VIAL IV SCH ×2 (09:53→10:16)
[2018-03-12] MEDS: METOPROLOL TARTRATE 25 MG TABLET PO SCH (09:53)
[2018-03-12] MEDS: ATORVASTATIN 10 MG TABLET PO SCH (09:53)
[2018-03-12] MEDS: SERTRALINE 50 MG TABLET PO SCH (09:53)
[2018-03-12] MEDS: MEGESTROL ES 125 MG/ML 30 ML/BOTTLE PO SCH (09:54)
[2018-03-12] MEDS: SODIUM CHLORIDE 0.9% 1,000 ML IV SCH (10:15)
[2018-03-12] MEDS: cefTRIAXone 1,000 MG in SYRINGE 1 EACH IV SCH (12:43)
== END 2018-03-12 14:01 | disposition hospice, home (50) | DRG 378 ==
LOC: N.ED 10:48 → N.EDINP 13:24 → SUATTDRO 13:24 → N.2W 13:57 → N.5E 17:12
PROVIDERS: ADMIT Internal Medicine; ATTEND Internal Medicine Nephrology

== ENCOUNTER 2018-05-15 17:21 | Inpatient (IN) ==
[2018-05-15 18:05] LABS: Basophils # 0.1 10*3/uL (0.0-0.2); Basophils % 0.2 % (0.0-0.8); Hematocrit 33.2 VOL% (35.7-47.0); Hemoglobin 10.3 GM/DL (12.0-16.0); Immature Granulocytes % 2.9 %; Immature Granulocytes Absolute 1.47 #; Lymphocytes # 1.3 10*3/uL (1.4-4.0); Lymphocytes % 2.5 % (21.3-54.2); Mean Corpuscular Hemoglobin 29 PG (27-34); Mean Corpuscular Volume 91.7 FL (87-102); Mean Platelet Volume 12.3 FL (9.6-12.0); Monocytes # 1.5 10*3/uL (0.11-0.8); Neutrophils # 45.7 10*3/uL (1.4-7.4); Neutrophils % 91.4 % (38.7-73.9); Platelet Count 309 T/CUMM (130-400); Red Blood Count 3.62 MC/CUMM (3.8-5.5); Red Cell Distribution Width 14.6 % (9.3-17.3)
[2018-05-15 18:09] LABS: White Blood Count 50.1 T/CUMM (4-12)
[2018-05-15] MEDS ORDERED: SODIUM CHLORIDE 0.9% 1,450 ML IV ONE (18:09)
[2018-05-15 18:21] LABS: Alanine Aminotransferase 33 U/L (13-56); Albumin 1.8 G/DL (3.4-5.0); Alkaline Phosphatase 202 U/L (45-117); Aspartate Amino Transferase 31 U/L (0-37); Blood Urea Nitrogen 57 MG/DL (7-18); Calcium 8.4 MG/DL (8.5-10.1); Glucose 123 MG/DL (74-106); Osmolality,Calculated 319.6 MOS/KG (273-304); Potassium 5.2 MMOL/L (3.5-5.1); Sodium 153 MMOL/L (136-145); Total Protein 8.2 G/DL (6.4-8.3)
[2018-05-15 18:24] LABS: INR 1.1; PT Patient Result 11.8 SECS; Partial Thromboplastin Time 26.6 SECS (0-40)
[2018-05-15] MEDS ORDERED: PIPERACILLIN/TAZOBACTAM 3,375 MG in SODIUM CHLORIDE 0.9% 100 ML IV SCH (18:30)
[2018-05-15] MEDS ORDERED: CEFTAROLINE 600 MG in SODIUM CHLORIDE 0.9% 100 ML IV STA (18:32)
[2018-05-15 18:33] LABS: Band Neutrophils 1 % (0-10); Lymphocytes 2 % (20-55); Segmented Neutrophils 95 % (50-85); Total Cells Counted 100
[2018-05-15 19:12] LABS: Apearance,Urine CLOUDY (Clear); Bacteria,Urine Many /HPF (Few); Bilirubin,Urine Negative (Negative); Blood, Urine Small mg/dL (Negative); Glucose,Urine (UA) Negative (Negative); Ketones,Urine Negative (Negative); Nitrite,Urine Negative (Negative); Protein,Urine 100 MG/DL; RBC,Urine 466 /HPF (0-4); Squamous Epithelial Cell,Urine Many /HPF (0-10); Urine Specific Gravity 1.021 (1.001-1.035); Urine Urobilinogen < 2.0 EU/DL (0.2-1.0); WBC,Urine 142 /HPF (0-6)
[2018-05-15 19:13] LABS: Urine Color Brown (Yellow)
[2018-05-15] MEDS ORDERED: ONDANSETRON 4 MG/2 ML VIAL IV PRN (19:23)
[2018-05-15] MEDS ORDERED: ACETAMINOPHEN 325 MG TABLET PO PRN ×2 (19:23→19:31)
[2018-05-15] MEDS ORDERED: ATROPINE 1 % OPH SOLN 5 ML BOTTLE SL PRN (19:31)
[2018-05-15] MEDS ORDERED: MORPHINE SULFATE 20 MG PO PRN (19:31)
[2018-05-15] MEDS ORDERED: NON-FORMULARY MEDICATION (Lorazepam [Lorazepam Intensol] 2 MG) PO PRN (19:31)
[2018-05-15] MEDS ORDERED: ALBUTEROL 2.5 MG/3 ML NEB RESP TX PRN (19:31)
[2018-05-15] MEDS: SODIUM CHLORIDE 0.9% 1,000 ML IV SCH (20:05)
[2018-05-15] MEDS ORDERED: PIPERACILLIN/TAZOBACTAM 3,375 MG VIAL IV ONE (20:59)
[2018-05-15] MEDS ORDERED: ZALEPLON 5 MG CAPSULE PO SCH (21:00)
[2018-05-15] MEDS: METOPROLOL TARTRATE 25 MG TABLET PO SCH (21:05)
[2018-05-15] MEDS: PIPERACILLIN/TAZOBACTAM 3,375 MG in SODIUM CHLORIDE 0.9% 100 ML IV SCH (21:15)
[2018-05-15] MEDS: DOCUSATE SODIUM 100 MG CAPSULE PO SCH (21:25)
[2018-05-16 04:34] LABS: Basophils # 0.1 10*3/uL (0.0-0.2); Basophils % 0.2 % (0.0-0.8); Hematocrit 30.3 VOL% (35.7-47.0); Hemoglobin 9.1 GM/DL (12.0-16.0); Immature Granulocytes % 3.3 %; Immature Granulocytes Absolute 1.52 #; Lymphocytes # 1.1 10*3/uL (1.4-4.0); Lymphocytes % 2.3 % (21.3-54.2); Mean Corpuscular Hemoglobin 29 PG (27-34); Mean Corpuscular Volume 95.6 FL (87-102); Mean Platelet Volume 12.3 FL (9.6-12.0); Monocytes # 1.2 10*3/uL (0.11-0.8); Monocytes % 2.6 % (1.7-12.7); Neutrophils # 42.4 10*3/uL (1.4-7.4); Neutrophils % 91.6 % (38.7-73.9); Platelet Count 252 T/CUMM (130-400); Red Blood Count 3.17 MC/CUMM (3.8-5.5); Red Cell Distribution Width 15.1 % (9.3-17.3)
[2018-05-16 04:36] LABS: White Blood Count 46.3 T/CUMM (4-12)
[2018-05-16 04:56] LABS: Lymphocytes 2 % (20-55); Platelet Estimate Normal; Segmented Neutrophils 97 % (50-85); Total Cells Counted 100
[2018-05-16 04:57] LABS: Polychromasia Few
[2018-05-16] MEDS: SODIUM CHLORIDE 0.9% 1,000 ML IV SCH ×2 (05:00→15:48)
[2018-05-16] MEDS: SODIUM CHLORIDE 0.45% 1,000 ML IV SCH ×3 (05:01→15:47)
[2018-05-16] MEDS: PIPERACILLIN/TAZOBACTAM 3,375 MG in SODIUM CHLORIDE 0.9% 100 ML IV SCH ×3 (05:07→15:46)
[2018-05-16 05:10] LABS: Potassium 4.9 MMOL/L (3.5-5.1)
[2018-05-16 05:20] LABS: Albumin 1.5 G/DL (3.4-5.0); Bilirubin,Total 0.6 MG/DL (0.2-1.0); Calcium 7.7 MG/DL (8.5-10.1); Osmolality,Calculated 315.7 MOS/KG (273-304); Total Protein 7.4 G/DL (6.4-8.3)
[2018-05-16] MEDS ORDERED: CEFTAROLINE 600 MG VIAL IV ONE (05:28)
[2018-05-16] MEDS ORDERED: SODIUM CHLORIDE 0.9% 100 ML IV ONE (05:28)
[2018-05-16] MEDS ORDERED: CEFTAROLINE 300 MG in SODIUM CHLORIDE 0.9% 100 ML IV SCH (06:00)
[2018-05-16] MEDS ORDERED: DONEPEZIL 10 MG TABLET PO SCH (09:00)
[2018-05-16] MEDS ORDERED: ATORVASTATIN 10 MG TABLET PO SCH (09:00)
[2018-05-16] MEDS ORDERED: SERTRALINE 50 MG TABLET PO SCH (09:00)
[2018-05-16] MEDS ORDERED: GABAPENTIN 100 MG CAPSULE PO SCH (09:00)
[2018-05-16] MEDS ORDERED: MEGESTROL ES 125 MG/ML 30 ML/BOTTLE PO SCH (09:00)
[2018-05-16] MEDS ORDERED: amLODIPine 5 MG TABLET PO SCH (09:00)
[2018-05-16] MEDS ORDERED: MEROPENEM 500 MG in SODIUM CHLORIDE 0.9% 100 ML IV SCH (11:00)
[2018-05-16] MEDS ORDERED: DEXTROSE 5% NACL 0.22% 1,000 ML IV SCH (11:00)
[2018-05-16] MEDS ORDERED: ALBUMIN 25% 25 GM in PREMIX 1 EACH IV ONE (12:30)
[2018-05-16] MEDS ORDERED: ACETAMINOPHEN 325 MG SUPP RECTAL PRN (13:37)
[2018-05-16] MEDS ORDERED: VANCOMYCIN INJ 750 MG in SODIUM CHLORIDE 0.9% 250 ML IV PRN (14:21)
[2018-05-16] MEDS ORDERED: VANCOMYCIN INJ 1,000 MG in SODIUM CHLORIDE 0.9% 250 ML IV ONE (14:30)
[2018-05-16] MEDS ORDERED: LORazepam 2 MG/1 ML VIAL IV PRN (14:32)
[2018-05-16] MEDS ORDERED: LEVOFLOXACIN INJ 750 MG in PREMIX 1 EACH IV ONE (15:30)
[2018-05-16] MEDS: METOPROLOL TARTRATE 25 MG TABLET PO SCH (15:50)
[2018-05-16] MEDS: DOCUSATE SODIUM 100 MG CAPSULE PO SCH (15:50)
[2018-05-16] MEDS: HYDROCORTISONE 2.5% RECTAL CREAM 30 GM TUBE TOP SCH (15:51)
[2018-05-16] MEDS ORDERED: CHLORHEXIDINE 0.12% ORAL RINSE 60 ML BOTTLE SWISH/SPIT SCH (21:00)
[2018-05-16] MEDS ORDERED: HALOPERIDOL 5 MG TABLET PO SCH (21:00)
[2018-05-17] MEDS: PIPERACILLIN/TAZOBACTAM 3,375 MG in SODIUM CHLORIDE 0.9% 100 ML IV SCH ×2 (01:35→14:09)
[2018-05-17 05:41] LABS: Basophils # 0.1 10*3/uL (0.0-0.2); Basophils % 0.2 % (0.0-0.8); Eosinophils # 0.3 10*3/uL (0.0-0.87); Eosinophils % 0.8 % (0.00-10.9); Hematocrit 27.2 VOL% (35.7-47.0); Hemoglobin 8.2 GM/DL (12.0-16.0); Immature Granulocytes % 3.6 %; Immature Granulocytes Absolute 1.19 #; Lymphocytes # 0.7 10*3/uL (1.4-4.0); Mean Corpuscular HGB Conc 30.1 GM/DL (32-36); Mean Corpuscular Hemoglobin 28 PG (27-34); Mean Corpuscular Volume 93.8 FL (87-102); Mean Platelet Volume 12.1 FL (9.6-12.0); Monocytes # 0.8 10*3/uL (0.11-0.8); Monocytes % 2.5 % (1.7-12.7); Neutrophils % 90.9 % (38.7-73.9); Platelet Count 241 T/CUMM (130-400)
[2018-05-17 06:15] LABS: Eosinophils 1 % (0-10); Hypochromasia 1+; Lymphocytes 3 % (20-55); Microcytosis 1+; Myelocytes 1 %; Ovalocytes Few; Platelet Estimate Normal; Segmented Neutrophils 92 % (50-85); Total Cells Counted 100
[2018-05-17] MEDS ORDERED: VANCOMYCIN INJ 750 MG in SODIUM CHLORIDE 0.9% 250 ML IV ONE (09:00)
[2018-05-17] MEDS ORDERED: LIDOCAINE 1%/EPI INJ 20 ML VIAL ONE (09:01)
[2018-05-17] MEDS ORDERED: PROPOFOL 200 MG/20 ML VIAL IV ONE (10:23)
[2018-05-17] MEDS ORDERED: SEVOFLURANE 1 UNIT/15 MINUTE INH ONE (10:23)
[2018-05-17] MEDS ORDERED: MIDAZOLAM 2 MG/2 ML VIAL ONE (10:23)
[2018-05-17] MEDS ORDERED: fentaNYL 100 MCG/2 ML VIAL ONE (10:23)
[2018-05-17] MEDS ORDERED: ONDANSETRON 4 MG/2 ML VIAL ONE ×2 (10:24→11:03)
[2018-05-17] MEDS ORDERED: PHENYLEPHRINE 1 MG/10 ML SYRINGE IV ONE (10:24)
[2018-05-17] MEDS ORDERED: MEPERIDINE 25 MG/1 ML VIAL ONE (11:04)
[2018-05-17] MEDS ORDERED: ONDANSETRON 4 MG/2 ML VIAL IV PRN (11:10)
[2018-05-17] MEDS ORDERED: MEPERIDINE 25 MG/1 ML VIAL IV PRN (11:10)
[2018-05-17] MEDS: HYDROmorphone 2 MG/1 ML VIAL IV PRN (18:09)
[2018-05-17] MEDS: CHLORHEXIDINE 0.12% ORAL RINSE 60 ML BOTTLE SWISH/SPIT SCH (20:52)
[2018-05-18] MEDS: PIPERACILLIN/TAZOBACTAM 3,375 MG in SODIUM CHLORIDE 0.9% 100 ML IV SCH ×3 (00:49→19:20)
[2018-05-18 05:15] LABS: Basophils % 0.2 % (0.0-0.8); Eosinophils # 0.6 10*3/uL (0.0-0.87); Eosinophils % 2.6 % (0.00-10.9); Hematocrit 23.7 VOL% (35.7-47.0); Hemoglobin 7.3 GM/DL (12.0-16.0); Immature Granulocytes % 1.8 %; Immature Granulocytes Absolute 0.44 #; Lymphocytes # 1.2 10*3/uL (1.4-4.0); Lymphocytes % 4.7 % (21.3-54.2); Mean Corpuscular HGB Conc 30.8 GM/DL (32-36); Mean Corpuscular Hemoglobin 29 PG (27-34); Mean Platelet Volume 12.4 FL (9.6-12.0); Monocytes # 0.9 10*3/uL (0.11-0.8); Monocytes % 3.7 % (1.7-12.7); NRBC # 0.02 10*3/uL; Neutrophils # 21.4 10*3/uL (1.4-7.4); Platelet Count 238 T/CUMM (130-400); Red Blood Count 2.52 MC/CUMM (3.8-5.5); Red Cell Distribution Width 15.1 % (9.3-17.3); White Blood Count 24.6 T/CUMM (4-12)
[2018-05-18 05:40] LABS: Calcium 7.7 MG/DL (8.5-10.1); Osmolality,Calculated 313.3 MOS/KG (273-304); Potassium 3.2 MMOL/L (3.5-5.1)
[2018-05-18 06:19] LABS: Band Neutrophils 8 % (0-10); Eosinophils 2 % (0-10); Lymphocytes 4 % (20-55); Platelet Estimate Normal; Segmented Neutrophils 84 % (50-85); Total Cells Counted 100
[2018-05-18 06:20] LABS: Ovalocytes 1+
[2018-05-18] MEDS ORDERED: SODIUM CHLORIDE 0.9% 1,000 ML IV PRN ×2 (08:09→14:46)
[2018-05-18] MEDS: fentaNYL 25 MCG/HR PATCH TRANSDERM SCH (08:38)
[2018-05-18] MEDS: LEVOFLOXACIN INJ 500 MG in PREMIX 1 EACH IV SCH (08:39)
[2018-05-18] MEDS: CHLORHEXIDINE 0.12% ORAL RINSE 60 ML BOTTLE SWISH/SPIT SCH ×2 (11:53→22:07)
[2018-05-18] MEDS: SODIUM HYPOCHLORITE 0.25% IRRIG 473 ML BOTTLE TOP SCH (14:29)
[2018-05-18] MEDS: CHLORHEXIDINE 4% SOLN 118 ML BOTTLE TOP SCH (14:29)
[2018-05-18] MEDS: SALIVA SUBSTITUTE SPRAY 60 ML CAN SWISH/SPIT PRN (14:30)
[2018-05-18] MEDS: HYDROmorphone 2 MG/1 ML VIAL IV PRN (14:58)
[2018-05-18] MEDS ORDERED: DIGOXIN 0.5 MG/2 ML AMP IV ONE (16:40)
[2018-05-18] MEDS: POTASSIUM CHLORIDE INJ 40 MEQ in DEXTROSE 5% 1,000 ML IV SCH (21:58)
[2018-05-18 22:20] LABS: Hematocrit 35.8 VOL% (35.7-47.0)
[2018-05-18 22:34] LABS: Hemoglobin 11.1 GM/DL (12.0-16.0)
[2018-05-19] MEDS: METOPROLOL TARTRATE 5 MG/5 ML VIAL IV SCH ×4 (00:18→18:00)
[2018-05-19] MEDS: PIPERACILLIN/TAZOBACTAM 3,375 MG in SODIUM CHLORIDE 0.9% 100 ML IV SCH ×3 (02:28→18:05)
[2018-05-19 05:46] LABS: Basophils # 0.1 10*3/uL (0.0-0.2); Basophils % 0.3 % (0.0-0.8); Eosinophils # 0.3 10*3/uL (0.0-0.87); Eosinophils % 1.3 % (0.00-10.9); Hematocrit 34.6 VOL% (35.7-47.0); Hemoglobin 10.7 GM/DL (12.0-16.0); Immature Granulocytes Absolute 0.62 #; Lymphocytes # 1.2 10*3/uL (1.4-4.0); Lymphocytes % 5.8 % (21.3-54.2); Mean Corpuscular HGB Conc 30.9 GM/DL (32-36); Mean Corpuscular Hemoglobin 29 PG (27-34); Mean Corpuscular Volume 92.5 FL (87-102); Mean Platelet Volume 12.1 FL (9.6-12.0); Monocytes # 0.8 10*3/uL (0.11-0.8); Monocytes % 4.1 % (1.7-12.7); Neutrophils # 17.5 10*3/uL (1.4-7.4); Neutrophils % 85.5 % (38.7-73.9); Platelet Count 219 T/CUMM (130-400); Red Blood Count 3.74 MC/CUMM (3.8-5.5); Red Cell Distribution Width 14.6 % (9.3-17.3); White Blood Count 20.5 T/CUMM (4-12)
[2018-05-19 06:05] LABS: Calcium 7.8 MG/DL (8.5-10.1); Osmolality,Calculated 311.4 MOS/KG (273-304); Potassium 3.6 MMOL/L (3.5-5.1)
[2018-05-19 06:28] LABS: Band Neutrophils 2 % (0-10); Eosinophils 1 % (0-10); Lymphocytes 9 % (20-55); Metamyelocytes 1 %; Platelet Estimate Normal; Segmented Neutrophils 83 % (50-85); Total Cells Counted 100
[2018-05-19 08:09] LABS: INR 1.2; PT Patient Result 13.1 SECS; Partial Thromboplastin Time 34.3 SECS (0-40)
[2018-05-19] MEDS: CHLORHEXIDINE 0.12% ORAL RINSE 60 ML BOTTLE SWISH/SPIT SCH ×2 (10:36→21:08)
[2018-05-19] MEDS: CHLORHEXIDINE 4% SOLN 118 ML BOTTLE TOP SCH (10:37)
[2018-05-19] MEDS: SODIUM HYPOCHLORITE 0.25% IRRIG 473 ML BOTTLE TOP SCH (10:37)
[2018-05-19] MEDS: SALIVA SUBSTITUTE SPRAY 60 ML CAN SWISH/SPIT PRN (10:38)
[2018-05-19] MEDS ORDERED: VANCOMYCIN INJ 750 MG in SODIUM CHLORIDE 0.9% 250 ML IV ONE (15:00)
[2018-05-19] MEDS: POTASSIUM CHLORIDE INJ 40 MEQ in DEXTROSE 5% 1,000 ML IV SCH (18:03)
[2018-05-19] MEDS: HYDROmorphone 2 MG/1 ML VIAL IV PRN (18:04)
[2018-05-20] MEDS: METOPROLOL TARTRATE 5 MG/5 ML VIAL IV SCH ×4 (01:04→17:05)
[2018-05-20] MEDS: HYDROmorphone 2 MG/1 ML VIAL IV PRN ×5 (01:27→20:07)
[2018-05-20] MEDS: PIPERACILLIN/TAZOBACTAM 3,375 MG in SODIUM CHLORIDE 0.9% 100 ML IV SCH ×3 (02:25→17:04)
[2018-05-20 05:52] LABS: Basophils # 0.1 10*3/uL (0.0-0.2); Basophils % 0.3 % (0.0-0.8); Eosinophils # 0.5 10*3/uL (0.0-0.87); Eosinophils % 2.5 % (0.00-10.9); Hematocrit 36.2 VOL% (35.7-47.0); Hemoglobin 11.1 GM/DL (12.0-16.0); Immature Granulocytes % 3.2 %; Lymphocytes # 1.2 10*3/uL (1.4-4.0); Lymphocytes % 6.6 % (21.3-54.2); Mean Corpuscular HGB Conc 30.7 GM/DL (32-36); Mean Corpuscular Hemoglobin 29 PG (27-34); Mean Corpuscular Volume 93.8 FL (87-102); Monocytes # 0.7 10*3/uL (0.11-0.8); Neutrophils # 15.5 10*3/uL (1.4-7.4); Neutrophils % 83.4 % (38.7-73.9); Platelet Count 209 T/CUMM (130-400); Red Blood Count 3.86 MC/CUMM (3.8-5.5); Red Cell Distribution Width 15.4 % (9.3-17.3); White Blood Count 18.6 T/CUMM (4-12)
[2018-05-20 06:09] LABS: Calcium 7.6 MG/DL (8.5-10.1); Osmolality,Calculated 304.9 MOS/KG (273-304); Potassium 4.1 MMOL/L (3.5-5.1)
[2018-05-20 07:03] LABS: Anisocytosis 1+; Band Neutrophils 3 % (0-10); Eosinophils 4 % (0-10); Lymphocytes 11 % (20-55); Platelet Estimate Normal; Poikilocytosis Slight; Segmented Neutrophils 78 % (50-85); Total Cells Counted 100
[2018-05-20] MEDS: CHLORHEXIDINE 0.12% ORAL RINSE 60 ML BOTTLE SWISH/SPIT SCH ×2 (08:40→20:09)
[2018-05-20] MEDS: SODIUM HYPOCHLORITE 0.25% IRRIG 473 ML BOTTLE TOP SCH (08:41)
[2018-05-20] MEDS: LEVOFLOXACIN INJ 500 MG in PREMIX 1 EACH IV SCH (08:43)
[2018-05-20] MEDS: CHLORHEXIDINE 4% SOLN 118 ML BOTTLE TOP SCH (08:43)
[2018-05-20] MEDS ORDERED: fentaNYL 12 MCG/HR PATCH TRANSDERM SCH (10:30)
[2018-05-20] MEDS: POTASSIUM CHLORIDE INJ 40 MEQ in DEXTROSE 5% 1,000 ML IV SCH (14:35)
[2018-05-21] MEDS: HYDROmorphone 2 MG/1 ML VIAL IV PRN ×5 (01:12→20:51)
[2018-05-21] MEDS: METOPROLOL TARTRATE 5 MG/5 ML VIAL IV SCH ×3 (02:26→17:01)
[2018-05-21] MEDS: PIPERACILLIN/TAZOBACTAM 3,375 MG in SODIUM CHLORIDE 0.9% 100 ML IV SCH ×3 (02:27→17:01)
[2018-05-21 05:31] LABS: Basophils % 0.3 % (0.0-0.8); Eosinophils # 0.5 10*3/uL (0.0-0.87); Eosinophils % 3.7 % (0.00-10.9); Hemoglobin 10.8 GM/DL (12.0-16.0); Immature Granulocytes % 4.1 %; Immature Granulocytes Absolute 0.53 #; Lymphocytes # 1.3 10*3/uL (1.4-4.0); Mean Corpuscular HGB Conc 30.9 GM/DL (32-36); Mean Corpuscular Hemoglobin 29 PG (27-34); Mean Corpuscular Volume 93.6 FL (87-102); Mean Platelet Volume 11.7 FL (9.6-12.0); Monocytes # 0.7 10*3/uL (0.11-0.8); Monocytes % 5.7 % (1.7-12.7); Neutrophils # 9.9 10*3/uL (1.4-7.4); Neutrophils % 76.2 % (38.7-73.9); Platelet Count 193 T/CUMM (130-400); Red Blood Count 3.74 MC/CUMM (3.8-5.5); Red Cell Distribution Width 15.3 % (9.3-17.3)
[2018-05-21 05:46] LABS: Calcium 7.6 MG/DL (8.5-10.1); Osmolality,Calculated 291.6 MOS/KG (273-304); Potassium 4.3 MMOL/L (3.5-5.1)
[2018-05-21 05:57] LABS: Eosinophils 5 % (0-10); Hypochromasia 1+; Lymphocytes 10 % (20-55); Nucleated Red Blood Cells 1 (0-5); Platelet Estimate Adequate; Segmented Neutrophils 81 % (50-85); Total Cells Counted 100
[2018-05-21] MEDS: fentaNYL 25 MCG/HR PATCH TRANSDERM SCH (09:24)
[2018-05-21] MEDS: SODIUM HYPOCHLORITE 0.25% IRRIG 473 ML BOTTLE TOP SCH (09:24)
[2018-05-21] MEDS: CHLORHEXIDINE 4% SOLN 118 ML BOTTLE TOP SCH (09:25)
[2018-05-21] MEDS: CHLORHEXIDINE 0.12% ORAL RINSE 60 ML BOTTLE SWISH/SPIT SCH ×2 (09:25→20:50)
[2018-05-21] MEDS ORDERED: fentaNYL 50 MCG/HR PATCH TRANSDERM SCH (10:30)
[2018-05-21] MEDS: POTASSIUM CHLORIDE INJ 40 MEQ in DEXTROSE 5% 1,000 ML IV SCH (11:07)
[2018-05-22] MEDS: PIPERACILLIN/TAZOBACTAM 3,375 MG in SODIUM CHLORIDE 0.9% 100 ML IV SCH ×3 (02:15→17:58)
[2018-05-22] MEDS: HYDROmorphone 2 MG/1 ML VIAL IV PRN ×5 (02:17→17:55)
[2018-05-22] MEDS: METOPROLOL TARTRATE 5 MG/5 ML VIAL IV SCH ×3 (02:18→17:56)
[2018-05-22 05:32] LABS: Basophils # 0.1 10*3/uL (0.0-0.2); Basophils % 0.3 % (0.0-0.8); Eosinophils # 0.3 10*3/uL (0.0-0.87); Eosinophils % 2.1 % (0.00-10.9); Hematocrit 36.3 VOL% (35.7-47.0); Immature Granulocytes % 2.9 %; Immature Granulocytes Absolute 0.42 #; Lymphocytes # 1.6 10*3/uL (1.4-4.0); Mean Corpuscular HGB Conc 30.3 GM/DL (32-36); Mean Corpuscular Hemoglobin 29 PG (27-34); Mean Corpuscular Volume 95.5 FL (87-102); Mean Platelet Volume 12.1 FL (9.6-12.0); Monocytes # 1.2 10*3/uL (0.11-0.8); Neutrophils # 11.1 10*3/uL (1.4-7.4); Neutrophils % 75.7 % (38.7-73.9); Platelet Count 185 T/CUMM (130-400); Red Cell Distribution Width 15.3 % (9.3-17.3); White Blood Count 14.7 T/CUMM (4-12)
[2018-05-22 06:09] LABS: Calcium 7.9 MG/DL (8.5-10.1); Potassium 4.4 MMOL/L (3.5-5.1)
[2018-05-22 06:40] LABS: Eosinophils 2 % (0-10); Lymphocytes 8 % (20-55); Myelocytes 2 %; Ovalocytes Few; Segmented Neutrophils 83 % (50-85); Total Cells Counted 100
[2018-05-22 06:41] LABS: Acanthocytes Few; Hypochromasia 1+; Microcytosis 1+
[2018-05-22 06:42] LABS: Platelet Estimate Adequate
[2018-05-22] MEDS: POTASSIUM CHLORIDE INJ 40 MEQ in DEXTROSE 5% 1,000 ML IV SCH (08:30)
[2018-05-22] MEDS: SODIUM HYPOCHLORITE 0.25% IRRIG 473 ML BOTTLE TOP SCH (08:30)
[2018-05-22] MEDS: LEVOFLOXACIN INJ 500 MG in PREMIX 1 EACH IV SCH (08:31)
[2018-05-22] MEDS: CHLORHEXIDINE 4% SOLN 118 ML BOTTLE TOP SCH (08:33)
[2018-05-22] MEDS: CHLORHEXIDINE 0.12% ORAL RINSE 60 ML BOTTLE SWISH/SPIT SCH ×2 (08:34→21:46)
[2018-05-23] MEDS: HYDROmorphone 2 MG/1 ML VIAL IV PRN ×2 (00:02→04:10)
[2018-05-23] MEDS: PIPERACILLIN/TAZOBACTAM 3,375 MG in SODIUM CHLORIDE 0.9% 100 ML IV SCH (02:31)
[2018-05-23] MEDS: METOPROLOL TARTRATE 5 MG/5 ML VIAL IV SCH ×2 (02:32→09:57)
[2018-05-23 05:53] LABS: Basophils # 0.1 10*3/uL (0.0-0.2); Basophils % 0.3 % (0.0-0.8); Eosinophils # 0.4 10*3/uL (0.0-0.87); Eosinophils % 2.5 % (0.00-10.9); Hematocrit 31.7 VOL% (35.7-47.0); Hemoglobin 10.1 GM/DL (12.0-16.0); Immature Granulocytes Absolute 0.46 #; Lymphocytes # 1.7 10*3/uL (1.4-4.0); Mean Corpuscular HGB Conc 31.9 GM/DL (32-36); Mean Corpuscular Hemoglobin 29 PG (27-34); Mean Corpuscular Volume 90.8 FL (87-102); Mean Platelet Volume 11.7 FL (9.6-12.0); Monocytes # 1.1 10*3/uL (0.11-0.8); Monocytes % 7.4 % (1.7-12.7); Neutrophils # 11.7 10*3/uL (1.4-7.4); Neutrophils % 75.8 % (38.7-73.9); Platelet Count 201 T/CUMM (130-400); Red Blood Count 3.49 MC/CUMM (3.8-5.5); Red Cell Distribution Width 15.4 % (9.3-17.3); White Blood Count 15.5 T/CUMM (4-12)
[2018-05-23 06:19] LABS: Calcium 7.8 MG/DL (8.5-10.1); Osmolality,Calculated 290.6 MOS/KG (273-304); Potassium 4.2 MMOL/L (3.5-5.1)
[2018-05-23 09:08] VITALS: BP 116/75
[2018-05-23] MEDS: SODIUM HYPOCHLORITE 0.25% IRRIG 473 ML BOTTLE TOP SCH (09:57)
[2018-05-23] MEDS: CHLORHEXIDINE 4% SOLN 118 ML BOTTLE TOP SCH (09:57)
[2018-05-23] MEDS: CHLORHEXIDINE 0.12% ORAL RINSE 60 ML BOTTLE SWISH/SPIT SCH (09:57)
[2018-05-23] MEDS: POTASSIUM CHLORIDE INJ 40 MEQ in DEXTROSE 5% 1,000 ML IV SCH (09:59)
[2018-05-23] MEDS ORDERED: ERTAPENEM 1,000 MG in SODIUM CHLORIDE 0.9% 100 ML IV SCH (10:00)
[2018-05-23] MEDS ORDERED: HYDROmorphone 2 MG/1 ML VIAL IV ONE (10:44)
== END 2018-05-23 11:40 | DRG 853 ==
LOC: EDBD → EDUNIT# → N.ED 17:21 → N.EDINP 19:23 → N.2E 05-16 13:53
PROVIDERS: ADMIT Hospitalist; ATTEND Hospitalist